=== PATIENT | male | born 1960 | race Caucasian/White ===

== ENCOUNTER 2023-12-25 21:48 | Inpatient (IN) | payer MEDICARE, BC ==
[2023-12-25 22:17] LABS: APPEARANCE,URINE CLEAR (CLEAR); BASOPHILS ABSOLUTE AUTO 0.09 10^3/uL (0.00-0.50); BASOPHILS PERCENT AUTO 0.6 % (0-1); BILIRUBIN,URINE NEGATIVE (NEGATIVE); COLOR,URINE LIGHT YELLOW (YELLOW); EOSINOPHILS PERCENT AUTO 0.7 % (0-6); GLUCOSE,URINE NEGATIVE (NEGATIVE); HEMATOCRIT 43.1 % (42.0-52.0); HEMOGLOBIN 13.9 g/dL (14.0-18.0); IMMATURE GRAN ABSOLUTE AUTO 0.03 10^3/uL (0.00-0.49); IMMATURE GRAN PERCENT AUTO 0.2 % (0.0-4.9); KETONES,URINE TRACE mg/dL (NEGATIVE); LEUKOCYTE ESTERASE,URINE NEGATIVE (NEGATIVE); LYMPHOCYTES PERCENT AUTO 13.5 % (24-44); MEAN CORPUSCULAR HEMOGLOBIN 28.9 pg (27.0-32.0); MEAN CORPUSCULAR HGB CONC 32.3 g/dL (32.0-36.0); MEAN CORPUSCULAR VOLUME 89.6 fL (83.0-97.0); MONOCYTES ABSOLUTE AUTO 2.05 10^3/uL (0.00-1.50); MONOCYTES PERCENT AUTO 13.8 % (0-10); NEUTROPHILS ABSOLUTE AUTO 10.56 x10^3/uL (1.80-8.00); NEUTROPHILS PERCENT AUTO 71.2 % (41-71); NITRITE,URINE NEGATIVE (NEGATIVE); OCCULT BLOOD,URINE TRACE-INTACT (NEGATIVE); PH,URINE 5.5 (4.5-8.0); PLATELET COUNT,PLT 334 10^3/uL (150-400); PROTEIN,URINE NEGATIVE (NEGATIVE); RED BLOOD CELL COUNT 4.81 x10^6/uL (4.50-6.00); UROBILINOGEN,URINE 0.2 EU/dL (0.2-1.0); WHITE BLOOD CELL COUNT,WBC 14.8 10^3/uL (4.0-11.0)
[2023-12-25 22:23] LABS: BACTERIA,URINE NOT SEEN /HPF (NOT SEEN); EPITHELIAL CELLS,URINE RARE /HPF (NOT SEEN); MUCUS,URINE NOT SEEN /HPF (NOT SEEN); RBC,URINE 0-5 /HPF (0-5); WBC,URINE NOT SEEN /HPF (0-5)
[2023-12-25 22:29] LABS: ALBUMIN 4.1 g/dL (3.4-5.0); BILIRUBIN TOTAL 0.8 mg/dL (0.0-1.0); C-REACTIVE PROTEIN 6.92 mg/dL (<=0.50); CALCIUM 9.6 mg/dL (8.4-10.1); EST CRCL DRUG DOSING (CG) 24.57 mL/min; POTASSIUM,K 3.8 mEq/L (3.5-5.0); PROTEIN TOTAL,TP 8.6 g/dL (6.4-8.2)
[2023-12-25 22:30] LABS: CREATININE 2.9 mg/dL (0.7-1.3)
[2023-12-25] MEDS: Sodium Chloride 0.9% 1,000 ML IV ONE (22:45)
[2023-12-25] MEDS: Tamsulosin 0.4 MG Cap.ER PO ONE (23:40)
[2023-12-25] MEDS: HYDROmorphone 0.5 MG/0.5 ML Syringe IVPUSH ONE (23:40)
[2023-12-25] MEDS ORDERED: Acetaminophen 325 MG Tab PO PRN (23:52)
[2023-12-25] MEDS ORDERED: Ondansetron 4 MG Tab.DIS PO PRN (23:52)
[2023-12-26] MEDS: Sodium Chloride 0.9% 1,000 ML IV SCH (00:07)
[2023-12-26] MEDS: Ondansetron 4 MG/2 ML SDV IV PRN (03:32)
[2023-12-26] MEDS: HYDROmorphone 1 MG/ML Syringe IVPUSH PRN (03:33)
[2023-12-26 07:20] LABS: BASOPHILS ABSOLUTE AUTO 0.07 10^3/uL (0.00-0.50); BASOPHILS PERCENT AUTO 0.5 % (0-1); EOSINOPHILS ABSOLUTE AUTO 0.07 10^3/uL (0.00-1.50); EOSINOPHILS PERCENT AUTO 0.5 % (0-6); HEMATOCRIT 38.9 % (42.0-52.0); HEMOGLOBIN 12.5 g/dL (14.0-18.0); IMMATURE GRAN ABSOLUTE AUTO 0.03 10^3/uL (0.00-0.49); IMMATURE GRAN PERCENT AUTO 0.2 % (0.0-4.9); LYMPHOCYTES ABSOLUTE AUTO 1.88 10^3/uL (0.60-5.00); LYMPHOCYTES PERCENT AUTO 14.2 % (24-44); MEAN CORPUSCULAR HEMOGLOBIN 29.1 pg (27.0-32.0); MEAN CORPUSCULAR HGB CONC 32.1 g/dL (32.0-36.0); MEAN CORPUSCULAR VOLUME 90.7 fL (83.0-97.0); MONOCYTES ABSOLUTE AUTO 2.08 10^3/uL (0.00-1.50); MONOCYTES PERCENT AUTO 15.7 % (0-10); NEUTROPHILS ABSOLUTE AUTO 9.13 x10^3/uL (1.80-8.00); NEUTROPHILS PERCENT AUTO 68.9 % (41-71); PLATELET COUNT,PLT 308 10^3/uL (150-400); RED BLOOD CELL COUNT 4.29 x10^6/uL (4.50-6.00); WHITE BLOOD CELL COUNT,WBC 13.3 10^3/uL (4.0-11.0)
[2023-12-26] MEDS: Aspirin 81 MG Tab.EC PO SCH (07:24)
[2023-12-26 07:35] LABS: ALBUMIN 3.2 g/dL (3.4-5.0); BILIRUBIN TOTAL 0.6 mg/dL (0.0-1.0); C-REACTIVE PROTEIN 6.82 mg/dL (<=0.50); CALCIUM 8.4 mg/dL (8.4-10.1); EST CRCL DRUG DOSING (CG) 27.4 mL/min; POTASSIUM,K 3.9 mEq/L (3.5-5.0); PROTEIN TOTAL,TP 7.1 g/dL (6.4-8.2)
[2023-12-26 07:44] LABS: CREATININE 2.6 mg/dL (0.7-1.3)
[2023-12-26] MEDS: Docusate Sodium 100 MG Cap PO SCH (17:01)
[2023-12-26] MEDS: Acetaminophen/HYDROcodone 325-5 MG Tab PO PRN (18:57)
[2023-12-26] MEDS: Tamsulosin 0.4 MG Cap.ER PO SCH (18:59)
[2023-12-26] MEDS ORDERED: LORazepam 2 MG/ML SDV IVPUSH PRN (20:14)
[2023-12-26] MEDS: LORazepam 2 MG/ML SDV IVPUSH PRN (20:32)
[2023-12-27] MEDS ORDERED: Naloxone 2 MG/2 ML Syringe IVPUSH PRN (03:28)
[2023-12-27] MEDS: fentaNYL 100 MCG/2 ML SDV IV ONE (03:43)
[2023-12-27 08:07] LABS: BASOPHILS ABSOLUTE AUTO 0.04 10^3/uL (0.00-0.50); BASOPHILS PERCENT AUTO 0.3 % (0-1); EOSINOPHILS ABSOLUTE AUTO 0.04 10^3/uL (0.00-1.50); EOSINOPHILS PERCENT AUTO 0.3 % (0-6); HEMATOCRIT 37.1 % (42.0-52.0); HEMOGLOBIN 11.7 g/dL (14.0-18.0); IMMATURE GRAN ABSOLUTE AUTO 0.02 10^3/uL (0.00-0.49); IMMATURE GRAN PERCENT AUTO 0.2 % (0.0-4.9); LYMPHOCYTES ABSOLUTE AUTO 1.29 10^3/uL (0.60-5.00); LYMPHOCYTES PERCENT AUTO 10.3 % (24-44); MEAN CORPUSCULAR HEMOGLOBIN 28.9 pg (27.0-32.0); MEAN CORPUSCULAR HGB CONC 31.5 g/dL (32.0-36.0); MEAN CORPUSCULAR VOLUME 91.6 fL (83.0-97.0); MONOCYTES ABSOLUTE AUTO 1.69 10^3/uL (0.00-1.50); MONOCYTES PERCENT AUTO 13.5 % (0-10); NEUTROPHILS ABSOLUTE AUTO 9.47 x10^3/uL (1.80-8.00); NEUTROPHILS PERCENT AUTO 75.4 % (41-71); PLATELET COUNT,PLT 292 10^3/uL (150-400); RED BLOOD CELL COUNT 4.05 x10^6/uL (4.50-6.00); WHITE BLOOD CELL COUNT,WBC 12.6 10^3/uL (4.0-11.0)
[2023-12-27 08:11] LABS: ALBUMIN 3.2 g/dL (3.4-5.0); BILIRUBIN TOTAL 0.6 mg/dL (0.0-1.0); C-REACTIVE PROTEIN 8.57 mg/dL (<=0.50); CALCIUM 8.7 mg/dL (8.4-10.1); CREATININE 2.1 mg/dL (0.7-1.3); EST CRCL DRUG DOSING (CG) 33.93 mL/min; POTASSIUM,K 3.9 mEq/L (3.5-5.0); PROTEIN TOTAL,TP 7.2 g/dL (6.4-8.2)
[2023-12-27] MEDS: Polyethylene Glycol 3350 Powder 17 GM Packet PO PRN (14:12)
[2023-12-28 07:43] VITALS: BP 152/82; PULSE 88
[2023-12-28 07:52] LABS: BASOPHILS ABSOLUTE AUTO 0.07 10^3/uL (0.00-0.50); BASOPHILS PERCENT AUTO 0.6 % (0-1); EOSINOPHILS ABSOLUTE AUTO 0.03 10^3/uL (0.00-1.50); EOSINOPHILS PERCENT AUTO 0.3 % (0-6); HEMATOCRIT 35.6 % (42.0-52.0); HEMOGLOBIN 11.5 g/dL (14.0-18.0); IMMATURE GRAN ABSOLUTE AUTO 0.02 10^3/uL (0.00-0.49); IMMATURE GRAN PERCENT AUTO 0.2 % (0.0-4.9); LYMPHOCYTES ABSOLUTE AUTO 0.92 10^3/uL (0.60-5.00); LYMPHOCYTES PERCENT AUTO 7.9 % (24-44); MEAN CORPUSCULAR HGB CONC 32.3 g/dL (32.0-36.0); MEAN CORPUSCULAR VOLUME 89.9 fL (83.0-97.0); MONOCYTES ABSOLUTE AUTO 1.23 10^3/uL (0.00-1.50); MONOCYTES PERCENT AUTO 10.5 % (0-10); NEUTROPHILS ABSOLUTE AUTO 9.43 x10^3/uL (1.80-8.00); NEUTROPHILS PERCENT AUTO 80.5 % (41-71); PLATELET COUNT,PLT 284 10^3/uL (150-400); RED BLOOD CELL COUNT 3.96 x10^6/uL (4.50-6.00); WHITE BLOOD CELL COUNT,WBC 11.7 10^3/uL (4.0-11.0)
[2023-12-28 08:17] LABS: C-REACTIVE PROTEIN 10.96 mg/dL (<=0.50); CALCIUM 8.8 mg/dL (8.4-10.1); CREATININE 1.9 mg/dL (0.7-1.3); EST CRCL DRUG DOSING (CG) 37.5 mL/min; POTASSIUM,K 3.9 mEq/L (3.5-5.0)
== END 2023-12-28 08:18 | disposition home or self-care (01) | DRG 694 ==
LOC: CC.ED 21:48 → UNDOADMOB 23:35 → CC.MS 23:35 → OBSVTOIN 12-27 17:08
PROVIDERS: ADMIT Nurse Practitioner Family; ATTEND Nurse Practitioner Family
DX: N13.2 Hydronephrosis with renal and ureteral calculous obstruction (principal); N17.9 Acute kidney failure, unspecified; R31.9 Hematuria, unspecified; N40.0 Benign prostatic hyperplasia without lower urinary tract symptoms; Z79.82 Long term (current) use of aspirin; Z79.899 Other long term (current) drug therapy
CPT/HCPCS: 36415; 74019; 74176; 80048; 80053; 81001; 83690; 85025; 86140; 96361; 96374; 99285-25; A9270-GY; J1170; J2060; J2405; J3010; J7030

== ENCOUNTER 2025-02-07 22:01 | Inpatient (IN) | payer MEDICARE, BC ==
[2025-02-07] MEDS: Ondansetron 4 MG/2 ML SDV IVPUSH STA (22:31)
[2025-02-07 22:36] LABS: BASOPHILS ABSOLUTE AUTO 0.08 10^3/uL (0.00-0.50); BASOPHILS PERCENT AUTO 0.7 % (0-1); EOSINOPHILS ABSOLUTE AUTO 0.10 10^3/uL (0.00-1.50); EOSINOPHILS PERCENT AUTO 0.9 % (0-6); IMMATURE GRAN ABSOLUTE AUTO 0.06 10^3/uL (0.00-0.49); IMMATURE GRAN PERCENT AUTO 0.5 % (0.0-4.9); LYMPHOCYTES ABSOLUTE AUTO 1.50 10^3/uL (0.60-5.00); LYMPHOCYTES PERCENT AUTO 12.9 % (24-44); MONOCYTES ABSOLUTE AUTO 1.21 10^3/uL (0.00-1.50); MONOCYTES PERCENT AUTO 10.4 % (0-10); NEUTROPHILS ABSOLUTE AUTO 8.66 x10^3/uL (1.80-8.00); NEUTROPHILS PERCENT AUTO 74.6 % (41-71); PLATELET COUNT,PLT 240 10^3/uL (150-400); RED BLOOD CELL COUNT 4.80 x10^6/uL (4.50-6.00); WHITE BLOOD CELL COUNT,WBC 11.6 10^3/uL (4.0-11.0)
[2025-02-07 22:39] LABS: APPEARANCE,URINE CLEAR (CLEAR); GLUCOSE,URINE 500 mg/dL (NEGATIVE); OCCULT BLOOD,URINE MODERATE (NEGATIVE)
[2025-02-07 22:50] LABS: ALANINE AMINOTRANSFERASE,ALT 36.0 U/L (12-78); ASPARTATE AMNIOTRANSFERASE,AST 24.0 U/L (15-37); BILIRUBIN TOTAL 0.7 mg/dL (0.0-1.0); BLOOD UREA NITROGEN,BUN 21.0 mg/dL (7-18); CARBON DIOXIDE,CO2 24.0 mmol/L (21-32); CHLORIDE,CL 101.0 mEq/L (98-106); CREATININE 1.9 mg/dL (0.7-1.3); EST CRCL DRUG DOSING (CG) 37.0 mL/min; GLUCOSE RANDOM 271.0 mg/dL (75-99); POTASSIUM,K 4.0 mEq/L (3.5-5.0); PROTEIN TOTAL,TP 7.4 g/dL (6.4-8.2); SODIUM,NA 138.0 mEq/L (136-145)
[2025-02-07 22:52] LABS: ESTIMATED GFR 38.0 mL/min (>=60)
[2025-02-07] MEDS: Ketorolac 30 MG/ML SDV IVPUSH ONE (23:55)
[2025-02-08] MEDS ORDERED: hydrALAZINE 20 MG/ML SDV IVPUSH PRN (00:16)
[2025-02-08] MEDS ORDERED: Ondansetron 4 MG Tab.DIS PO PRN (00:16)
[2025-02-08] MEDS: Acetaminophen/oxyCODONE 325-5 MG Tab PO PRN (00:31)
[2025-02-08 07:50] LABS: BASOPHILS ABSOLUTE AUTO 0.05 10^3/uL (0.00-0.50); BASOPHILS PERCENT AUTO 0.4 % (0-1); EOSINOPHILS ABSOLUTE AUTO 0.02 10^3/uL (0.00-1.50); EOSINOPHILS PERCENT AUTO 0.2 % (0-6); IMMATURE GRAN ABSOLUTE AUTO 0.03 10^3/uL (0.00-0.49); IMMATURE GRAN PERCENT AUTO 0.3 % (0.0-4.9); LYMPHOCYTES ABSOLUTE AUTO 1.71 10^3/uL (0.60-5.00); LYMPHOCYTES PERCENT AUTO 15.0 % (24-44); MONOCYTES ABSOLUTE AUTO 1.04 10^3/uL (0.00-1.50); MONOCYTES PERCENT AUTO 9.1 % (0-10); NEUTROPHILS ABSOLUTE AUTO 8.55 x10^3/uL (1.80-8.00); NEUTROPHILS PERCENT AUTO 75.0 % (41-71); PLATELET COUNT,PLT 243 10^3/uL (150-400); RED BLOOD CELL COUNT 4.70 x10^6/uL (4.50-6.00); WHITE BLOOD CELL COUNT,WBC 11.4 10^3/uL (4.0-11.0)
[2025-02-08 08:03] LABS: ALANINE AMINOTRANSFERASE,ALT 34.0 U/L (12-78); ASPARTATE AMNIOTRANSFERASE,AST 21.0 U/L (15-37); BILIRUBIN TOTAL 0.6 mg/dL (0.0-1.0); BLOOD UREA NITROGEN,BUN 19.0 mg/dL (7-18); CARBON DIOXIDE,CO2 24.0 mmol/L (21-32); CHLORIDE,CL 100.0 mEq/L (98-106); CREATININE 1.7 mg/dL (0.7-1.3); EST CRCL DRUG DOSING (CG) 41.35 mL/min; GLUCOSE RANDOM 244.0 mg/dL (75-99); POTASSIUM,K 4.1 mEq/L (3.5-5.0); PROTEIN TOTAL,TP 7.4 g/dL (6.4-8.2); SODIUM,NA 135.0 mEq/L (136-145)
[2025-02-08] MEDS: Ketorolac 30 MG/ML SDV IVPUSH PRN (08:05)
[2025-02-08 08:07] LABS: ESTIMATED GFR 44.0 mL/min (>=60)
[2025-02-08] MEDS: Ondansetron 4 MG/2 ML SDV IV PRN (08:18)
[2025-02-09 08:19] LABS: BASOPHILS ABSOLUTE AUTO 0.06 10^3/uL (0.00-0.50); BASOPHILS PERCENT AUTO 0.8 % (0-1); EOSINOPHILS ABSOLUTE AUTO 0.28 10^3/uL (0.00-1.50); EOSINOPHILS PERCENT AUTO 3.9 % (0-6); IMMATURE GRAN ABSOLUTE AUTO 0.04 10^3/uL (0.00-0.49); IMMATURE GRAN PERCENT AUTO 0.6 % (0.0-4.9); LYMPHOCYTES ABSOLUTE AUTO 1.46 10^3/uL (0.60-5.00); LYMPHOCYTES PERCENT AUTO 20.3 % (24-44); MONOCYTES ABSOLUTE AUTO 0.95 10^3/uL (0.00-1.50); MONOCYTES PERCENT AUTO 13.2 % (0-10); NEUTROPHILS ABSOLUTE AUTO 4.40 x10^3/uL (1.80-8.00); NEUTROPHILS PERCENT AUTO 61.2 % (41-71); PLATELET COUNT,PLT 225 10^3/uL (150-400); RED BLOOD CELL COUNT 4.21 x10^6/uL (4.50-6.00); WHITE BLOOD CELL COUNT,WBC 7.2 10^3/uL (4.0-11.0)
[2025-02-09 08:52] LABS: ALANINE AMINOTRANSFERASE,ALT 25.0 U/L (12-78); ASPARTATE AMNIOTRANSFERASE,AST 13.0 U/L (15-37); BILIRUBIN TOTAL 0.6 mg/dL (0.0-1.0); BLOOD UREA NITROGEN,BUN 14.0 mg/dL (7-18); CARBON DIOXIDE,CO2 26.0 mmol/L (21-32); CHLORIDE,CL 107.0 mEq/L (98-106); CREATININE 1.1 mg/dL (0.7-1.3); EST CRCL DRUG DOSING (CG) 63.91 mL/min; GLUCOSE RANDOM 175.0 mg/dL (75-99); POTASSIUM,K 3.9 mEq/L (3.5-5.0); PROTEIN TOTAL,TP 6.3 g/dL (6.4-8.2); SODIUM,NA 140.0 mEq/L (136-145)
[2025-02-09 08:55] LABS: ESTIMATED GFR 74.0 mL/min (>=60)
[2025-02-09] MEDS: Take Home: Acetaminophen/oxyCODONE 325-5 MG, 2 Tab Pack PO ONE (15:04)
[2025-02-09] MEDS: Take Home: Ondansetron 4 MG Tab.DIS, 5 Tab Pack PO ONE (15:04)
== END 2025-02-09 15:25 | disposition home or self-care (01) | DRG 694 ==
LOC: CC.ED 22:01 → OBSVTOIN 02-08 00:08 → CC.MS 02-08 00:08
PROVIDERS: ADMIT Nurse Practitioner; ATTEND Nurse Practitioner
DX: N13.30 Unspecified hydronephrosis (principal); N20.1 Calculus of ureter; N23 Unspecified renal colic
CPT/HCPCS: 36415; 74176; 80053; 81001; 82365; 83605; 83735; 85025; 96361; 96374; 96375; 96376; 99223; 99233; 99238; 99285-25; A9270-GY; G0378; J1171; J1885; J2405; J7030; Q0162